=== PATIENT | female | born 1995 | race African-American/Black ===

== ENCOUNTER → 2022-06-12 08:03 | Outpatient (BNVA) | payer MEDICAID, SELFPAY | PROVIDERS: PCP Family Medicine; Visit Provider Physician Assistant Surgical ==

== ENCOUNTER → 2022-06-28 08:00 | Outpatient (BNVA) | payer MEDICAID, SELFPAY | PROVIDERS: PCP Family Medicine; Visit Provider Surgery ==

== ENCOUNTER 2022-07-09 06:57 | Outpatient (REF) | payer MEDICAID, SELFPAY ==
--- NOTE | ~2022-07-09 | XR_ITS ---
EXAMINATION: XR CHEST CLINICAL INFORMATION: Bariatric service evaluation. E66.01. COMPARISON: None available. TECHNIQUE: 2 views of the chest were obtained. FINDINGS: The lungs are clear. The vascularity is normal. There is no airspace consolidation or groundglass opacity or effusion. The heart is within normal size. The hilar and mediastinal contours are normal. There is mild levocurvature lower thoracic spine similar to prior exam. XR/XR chest 2V IMPRESSION: Lungs clear.
[2022-07-09 07:42] LABS: MANUAL DIFF FLAG NO
[2022-07-09 07:57] LABS: Basophils Percent Auto 0.3 % (0-2); Eosinophils Absolute Auto 0.1 X10*3/uL (0.0-0.4); Eosinophils Percent Auto 1.6 % (0-4); Hematocrit 40.4 % (37.0-47.0); Hemoglobin 12.7 g/dl (12.0-16.0); Imm Gran Abs Auto 0.01 X10*3/uL (0.00-0.03); Imm Gran Pct Auto 0.1 % (0.0-0.4); Lymphocytes Absolute Auto 1.7 X10*3/uL (1.2-4.9); Lymphocytes Percent Auto 24.7 % (20-40); Mean Corpuscular HGB Conc 31.4 g/dl (31.0-35.0); Mean Corpuscular Hemoglobin 25.5 pg (27.0-33.0); Mean Platelet Volume 9.9 fL (9.4-12.3); Monocytes Absolute Auto 0.5 X10*3/uL (0.1-1.2); Monocytes Percent Auto 7.2 % (2-11); Neutrophils Absolute Auto 4.7 x10*3/uL (2.0-8.3); Neutrophils Percent Auto 66.1 % (45-73); Platelet Count 253 X10*3/uL (160-400); Red Blood Count 4.99 X10*6/uL (4.20-5.50); Red Cell Distribution Width 13.7 % (11.0-16.0)
--- NOTE | 2022-07-09 08:07 | ECG_ITS ---
Test Reason : E66.01 Morbid Obesity Blood Pressure : / mmHG Vent. Rate : 060 BPM Atrial Rate : 060 BPM P-R Int : 142 ms QRS Dur : 082 ms QT Int : 400 ms P-R-T Axes : 043 030 025 degrees QTc Int : 400 ms Normal sinus rhythm Normal ECG When compared with ECG of 06-FEB-2019 08:31, No significant change was found Referred By: Kj Awad Electronically Signed By:WILFRIDO CHACON
[2022-07-09 08:23] LABS: Estimated Average Glucose 103 mg/dL; Hemoglobin A1c % 5.2 %
[2022-07-09 08:45] LABS: Alanine Aminotransferase 23 U/L (0-31); Albumin Level 4.2 g/dL (3.5-5.0); Alkaline Phosphatase 73 U/L (39-117); Anion Gap 10 (12-20); Aspartate Amino Transferase 24 U/L (5-31); Bilirubin Total 0.6 mg/dL (0.0-1.0); Blood Urea Nitrogen 9 mg/dL (9-16); C Reactive Protein 0.78 mg/dL (< or = 0.50); Calcium 9.1 mg/dL (8.4-10.2); Carbon Dioxide 25 mmol/L (22-29); Chloride 108 mmol/L (96-108); Cholesterol 112 mg/dL; Estimated Glomerular Filt Rate > 60; Glucose Random 94 mg/dL (60-115); HDL Cholesterol 33 mg/dL; Iron 54 mcg/dL (30-160); LDL Cholesterol Calculated 73 mg/dl; Percent Iron Saturation 20 % (15-50); Sodium 139 mmol/L (135-145); Total Iron Binding Capacity 272 mcg/dL (228-428); Total Protein 6.9 g/dL (6.5-8.0); Triglycerides 33 mg/dL; Unsaturated Iron Binding 218 ug/dL
[2022-07-09 09:13] LABS: Ferritin 65 ng/mL (10-122); Folate 11.3 ng/mL (> or = 4.0); Insulin 6 uU/mL (2-29); TSH reflex Free T4 0.82 uIU/mL (0.32-4.0); Vitamin B12 794 pg/mL (200-900); Vitamin D 25-OH Total 14.7 ng/mL (>30)
[2022-07-10 13:24] LABS: Calcium (PTHI) 9.4 mg/dL (8.6-10.2); PTHI 37 pg/mL (16-77)
[2022-07-12 11:26] LABS: H Pylori Breath Test Negative (Negative)
[2022-07-13 01:17] LABS: Zinc 82 mcg/dL (60-130)
[2022-07-13 11:54] LABS: Vitamin B1 10 nmol/L (8-30)
[2022-07-15 11:14] LABS: Vitamin A 22 mcg/dL (38-98)
== END 2022-07-09 06:58 | disposition home or self-care (01) ==
LOC: HO.LAB 06:57
PROVIDERS: PCP Family Medicine; Visit Provider Surgery
DX: E66.01 Morbid (severe) obesity due to excess calories (principal); J45.909 Unspecified asthma, uncomplicated; K21.9 Gastro-esophageal reflux disease without esophagitis; Z11.0 Encounter for screening for intestinal infectious diseases
CPT/HCPCS: 36415; 71046; 80053; 80061; 82306; 82607; 82728; 82746; 83013; 83036; 83525; 83540; 83970; 84425; 84443; 84590; 84630; 85025; 86140; 93005; 99211

== ENCOUNTER → 2022-07-22 08:06 | Outpatient (BNVA) | payer MEDICAID, SELFPAY | PROVIDERS: PCP Family Medicine; Visit Provider Surgery ==

== ENCOUNTER 2022-07-24 07:53 | Outpatient (REF) | payer MEDICAID, SELFPAY ==
--- NOTE | ~2022-07-24 | US_ITS ---
EXAMINATION: US COMPLETE ABDOMEN WITH LIVER ELASTOGRAPHY CLINICAL INFORMATION: Morbid to severe obesity. COMPARISON: None available. TECHNIQUE: Real-time imaging of the abdominal viscera. Noninvasive ultrasound liver fibrosis assessment is performed using Ariane ElastPQ point quantification shear wave elastography (2D-SWE) with a C5-2 MHz transducer. Multiple elastography samples are obtained. FINDINGS: PANCREAS: The visualized pancreatic head and body are normal in appearance. The remainder of the pancreas is obscured from visualization by the overlying bowel gas. ABDOMINAL AORTA: The proximal, middle, and distal aortic segments are normal in caliber. INFERIOR VENA CAVA: Visualized portions are normal. LIVER: Normal. The liver demonstrates normal size, contour and echogenicity. No focal lesion or intrahepatic biliary duct dilatation. The right lobe measures 14.3 cm in length. The left lobe measures 9.1 cm in length. Portal flow is hepatopedal. Shear wave liver elastography median stiffness is 1.39 m/s (reference: normal median stiffness is 1.3 m/s or less). IQR/median stiffness to assess sampling precision is 0.17 (reference: good quality data set is IQR/median stiffness of 0.15 or less). GALLBLADDER: Normal. The gallbladder is physiologically distended without evidence of stones, sludge, polyps, wall thickening or pericholecystic fluid. COMMON BILE DUCT: Normal in caliber measuring 0.6 cm in diameter. RIGHT KIDNEY: Normal. No hydronephrosis. No renal calculi or focal parenchymal lesions. The kidney measures 10.9 cm in maximum dimension. LEFT KIDNEY: There are prominent pyramids noted. No hydronephrosis. No renal calculi 0.17 or focal parenchymal lesions. The kidney measures 10.8 cm in maximum dimension. SPLEEN: Normal. The spleen measures 9.3 cm in maximum dimension. FREE FLUID: None. US/US abdomen comp w elastography IMPRESSION: 1. Slightly prominent pyramids left kidney. No echogenic renal calculi or hydronephrosis. 2. Rest of the abdominal ultrasound is unremarkable. 3. Liver elastography: Median liver stiffness measures 1.39 m/s corresponding to cACLD ruled out. REFERENCE: Society of Radiologists in Ultrasound Liver Stiffness Thresholds (2020): LIVER STIFFNESS THRESHOLDS: *Liver Stiffness equal or less than 1.3 m/s: High probability of being normal. *Liver Stiffness less than 1.7 m/s: In the absence of other known clinical signs, rules out compensated advanced chronic liver disease. *Liver Stiffness 1.7-2.1 m/s: Suggestive of compensated advanced chronic liver disease but need further test for confirmation. *Liver Stiffness over 2.1 m/s: Rules in compensated advanced chronic liver disease. *Liver Stiffness over 2.4 m/s: Suggestive of clinically significant portal hypertension. QUALITY OF DATA SET: *IQR/Median value equal or less than 0.15 implies a quality data set. *IQR/Median value over 0.15 implies a poor quality data set. SIGNIFICANT CHANGE FROM PRIOR EXAM: Significant change if liver stiffness measurement is 10% or greater from prior exam. OTHER CONSIDERATIONS: The stage of liver fibrosis may be overestimated in the setting of acute hepatitis, liver inflammation, elevated liver function tests, hepatic vascular congestion, obstructive cholestasis, non-fasting state, and infiltrative diseases such as amyloidosis and lymphoma. In some patients with NAFLD, the liver stiffness thresholds for compensated advanced chronic liver disease may be lower. In causes other than viral hepatitis and NAFLD, liver stiffness thresholds are not well established.
== END 2022-07-24 07:54 | disposition home or self-care (01) ==
LOC: HO.US 07:53
PROVIDERS: PCP Family Medicine; Visit Provider Surgery
DX: E66.01 Morbid (severe) obesity due to excess calories (principal); K21.9 Gastro-esophageal reflux disease without esophagitis; J45.909 Unspecified asthma, uncomplicated
CPT/HCPCS: 76705; 76981

== ENCOUNTER → 2022-07-29 08:55 | Outpatient (BNVA) | payer MEDICAID, SELFPAY | PROVIDERS: PCP Family Medicine; Visit Provider Dietitian, Registered | DX: E66.01 Morbid (severe) obesity due to excess calories (principal) | CPT/HCPCS: 97802 ==

== ENCOUNTER → 2022-08-05 08:30 | Outpatient (BNVA) | payer MEDICAID, SELFPAY | PROVIDERS: PCP Family Medicine; Visit Provider Counselor Mental Health ==

== ENCOUNTER → 2022-08-23 08:01 | Outpatient (BNVA) | payer MEDICAID, SELFPAY | PROVIDERS: PCP Family Medicine; Visit Provider Surgery ==

== ENCOUNTER 2022-08-27 08:28 | Outpatient (REF) | payer MEDICAID, SELFPAY ==
--- NOTE | ~2022-08-27 | FL_ITS ---
EXAMINATION: XR FLUOROSCOPY UPPER GI WITH AIR CLINICAL INFORMATION: Obesity COMPARISON: None available. TECHNIQUE: Upper GI was performed using thin and thick barium and effervescent granules FINDINGS: Normal esophageal motility. Gastroesophageal reflux. No hernia. Normal stomach and duodenum. No fold thickening, mass, ulcer or stricture. FLUOROSCOPY TIME: 0.4 minutes DOSE AREA PRODUCT: 5 cruz per centimeter squared. Total days 20 mgy. 22 saved fluoroscopic images FL/FL upper GI w air IMPRESSION: Gastroesophageal reflux.
== END 2022-08-27 08:29 | disposition home or self-care (01) ==
LOC: HO.XRAY 08:28
PROVIDERS: PCP Family Medicine; Visit Provider Surgery
DX: E66.01 Morbid (severe) obesity due to excess calories (principal); J45.909 Unspecified asthma, uncomplicated; K21.9 Gastro-esophageal reflux disease without esophagitis
CPT/HCPCS: 74246

== ENCOUNTER 2022-10-01 08:37 | Outpatient (AMB) | payer MEDICAID, SELFPAY ==
--- NOTE | 2022-10-01 08:37 | A.OFFVIS_ITS ---
Intake Intake Visit Reasons: VIDEO F/U [facility] Allergies No Known Allergies [No Known Allergies*] Allergy (Verified 07/09/22 08:30) NICKEL Allergy (Unknown, Uncoded 06/28/22 08:19) redness and itching HPI HPI Comments History of Present Illness Details 26 yo female returns to the [facility] clinic for follow up. She states she has been sick this past week and had not weighed herself or eating much She had N/V and had difficulty keeping solids down and she called her PCP who told her to just keep drinking fluids. Symptoms now resolved. Meal plan: ?2 Isopure protein shakes (1/2 scoop in water), 2 Zone Perfect protein bars and one meal (10 forks of protein and 10 forks of salad or vegetables) 64-96 oz water Exercise plan: when she isn't sick Treadmill incline 3-8 w speed 2.6, 4-5 days per week, 500 calories. 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 Encouraged to weigh tomorrow morning and communicate w Dr Lewis. She has resumed her meal plan and is restarting the gym today Once back on track w gym, suggest speed 3 incline 3-10. Same caloric goal. Has completed all pre-op testing Defer back to Dr Lewis for surgical scheduling when appropriate. Telehealth Telehealth Location of provider rendering services: practice address Location of patient: other Patient Identification confirmed using: Name, : Yes Telehealth method: video Patient verbally consented to treatment: Yes Patient verbally consented to billing insurance company: Yes Patient informed of any privacy concerns related to visit: Yes Minutes spent on Phone/Video with Pt.: 12 Coding Level of Care Code Tele Est Pt Level 3 (30099) Diagnoses Morbid obesity E66.01 Time Spent (min) 20
== END 2022-10-01 08:51 | disposition home or self-care (01) ==
LOC: HO.HBS 08:37
PROVIDERS: PCP Family Medicine; Visit Provider Physician Assistant Surgical
DX: E66.01 Morbid (severe) obesity due to excess calories (principal)
CPT/HCPCS: 99213

== ENCOUNTER 2022-10-28 07:46 | Outpatient (AMB) | payer MEDICAID, SELFPAY ==
--- NOTE | 2022-10-28 08:24 | MHC.OFFVISWM ---
Intake VS Expanded 10/28/22 08:29 Height 5 ft 5 in Weight 252 lb 2 oz BMI 42.0 Body Fat 149.3 Body Fat Percentage 59.2 Free Fat Mass 102.8 Water Mass 87 Intake Visit Reasons: TV Follow Up SWL Allergies No Known Allergies [No Known Allergies*] Allergy (Verified 07/09/22 08:30) NICKEL Allergy (Unknown, Uncoded 06/28/22 08:19) redness and itching HPI TV Follow Up SWL HPI Details Start time: 8.22am, End time: 8.36am ?I spent 10 minutes speaking with the patient on the phone plus an additional 5 minutes reviewing and updating records for a total of 15 minutes HPI Comments History of Present Illness Details Overall weight loss: 20.6lbs, or 7.55% TBWL Is doing 2 Isopure protein shakes (1/2 scoop each in water), 2 Zone Perfect protein bars and one meal (10 forks of meat and 10 forks of salad or vegetables) Exercise: Gym x2/week, doing treadmill for 500 calories per work-out [facility] Medical History Asthma DJD (degenerative joint disease) GERD (gastroesophageal reflux disease) Morbid obesity Surgical History History of tonsillectomy Social History Household Members: Significant Other Housing: House Alcohol intake: current Alcohol intake frequency: holidays/special occasions only Alcohol type: wine Current occupational status: employed 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 Plan for lap sleeve gastrectomy including upper GI endoscopy. All tests has been completed and reviewed and the patient is cleared for the surgery. ?If diaphragmatic or ventral hernias are present at time of surgery, these will be repaired laparoscopically as well. Risks and complications were discussed in detail including possible conversion to an open procedure, anastomotic leak, bleeding requiring transfusion, small bowel obstruction, , DVT and pulmonary embolism, cardiac, or pulmonary complications, as mass communications instructor complications such as anastomotic ulcer, insufficient weight loss and vitamin deficiencies. I emphasized the importance of close follow-up, adherence to instructions and good communication. So far she has proven to be an excellent communicator and very compliant with all our directions accomplishing a great weight loss. I believe that she is an excellent candidate and she is ready. 2. Continue same nutritional plan of 2 Isopure protein shakes (1/2 scoop each in water), 2 Zone Perfect protein bars and one meal (10 forks of meat and 10 forks of salad or vegetables) 3. Exercise: Try to increase Gym to 3 days/week, doing treadmill for 600 calories per work-out 4. Continue to send me weight measurements weekly on Tuesdays Telehealth Telehealth Location of provider rendering services: practice address Location of patient: address on file Patient Identification confirmed using: Name, : Yes Telehealth method: voice only Patient verbally consented to treatment: Yes Patient verbally consented to billing insurance company: Yes Patient informed of any privacy concerns related to visit: Yes Minutes spent on Phone/Video with Pt.: 15 Coding Level of Care Code Tele Est Pt Level 2 (66185) Diagnoses Morbid obesity E66.01 Time Spent (min) 15
[2022-10-28 08:29] VITALS: BMI 42.0
== END 2022-10-28 08:37 | disposition home or self-care (01) ==
LOC: HO.HBS 07:46
PROVIDERS: PCP Family Medicine; Visit Provider Surgery
DX: E66.01 Morbid (severe) obesity due to excess calories (principal); Z68.41 Body mass index [BMI] 40.0-44.9, adult
CPT/HCPCS: 99212

== ENCOUNTER → 2022-10-28 07:46 | Outpatient (BNVA) | payer MEDICAID, SELFPAY | PROVIDERS: PCP Family Medicine; Visit Provider Surgery ==

== ENCOUNTER 2022-10-31 16:34 | Outpatient (REF) | payer MEDICAID, SELFPAY ==
[2022-10-31 17:25] LABS: MANUAL DIFF FLAG NO
[2022-10-31 18:08] LABS: Basophils Percent Auto 0.3 % (0-2); Eosinophils Absolute Auto 0.1 X10*3/uL (0.0-0.4); Eosinophils Percent Auto 1.2 % (0-4); Hematocrit 37.1 % (37.0-47.0); Hemoglobin 11.5 g/dl (12.0-16.0); Imm Gran Abs Auto 0.02 X10*3/uL (0.00-0.03); Imm Gran Pct Auto 0.2 % (0.0-0.4); Lymphocytes Absolute Auto 2.7 X10*3/uL (1.2-4.9); Lymphocytes Percent Auto 27.9 % (20-40); Mean Corpuscular Hemoglobin 26.5 pg (27.0-33.0); Mean Corpuscular Volume 85.5 fL (80.0-98.0); Mean Platelet Volume 10.5 fL (9.4-12.3); Monocytes Absolute Auto 0.8 X10*3/uL (0.1-1.2); Monocytes Percent Auto 8.2 % (2-11); Neutrophils Percent Auto 62.2 % (45-73); Platelet Count 272 X10*3/uL (160-400); Red Blood Count 4.34 X10*6/uL (4.20-5.50); Red Cell Distribution Width 14.3 % (11.0-16.0); White Blood Count 9.7 X10*3/uL (4.8-10.8)
[2022-10-31 18:52] LABS: Alanine Aminotransferase 25 U/L (0-31); Alkaline Phosphatase 74 U/L (39-117); Anion Gap 12 (12-20); Aspartate Amino Transferase 23 U/L (5-31); Bilirubin Total 0.2 mg/dL (0.0-1.0); Blood Urea Nitrogen 13 mg/dL (9-16); Calcium 9.4 mg/dL (8.4-10.2); Carbon Dioxide 26 mmol/L (22-29); Chloride 107 mmol/L (96-108); Estimated Glomerular Filt Rate > 60; Glucose Random 85 mg/dL (60-115); Potassium 3.7 mmol/L (3.3-5.1); Sodium 141 mmol/L (135-145); Total Protein 7.1 g/dL (6.5-8.0)
[2022-10-31 18:56] LABS: HCG Quantitative < 2 mIU/mL
== END 2022-10-31 16:35 | disposition home or self-care (01) ==
LOC: HO.HHCL 16:34
PROVIDERS: Visit Provider Emergency Medicine
DX: R10.13 Epigastric pain (principal); N92.6 Irregular menstruation, unspecified
CPT/HCPCS: 36415; 80053; 84702; 85025

== ENCOUNTER 2022-11-08 08:34 | Outpatient (AMB) | payer MEDICAID, SELFPAY ==
--- NOTE | 2022-11-08 08:54 | A.OFFVIS_ITS ---
Intake VS Expanded 11/08/22 09:05 11/08/22 10:14 Height 5 ft 5 in 5 ft 5 in Weight 249 lb 2 oz 249 lb 2 oz BMI 41.5 41.5 Body Fat 147.5 147.5 Body Fat Percentage 59.2 59.2 Free Fat Mass 101.6 101.6 Water Mass 85.9 85.9 Intake Visit Reasons: TV Pre Op LSG 11/19/22 Allergies No Known Allergies [No Known Allergies*] Allergy (Verified 11/08/22 08:54) NICKEL Allergy (Unknown, Uncoded 11/08/22 08:54) redness and itching Medication List - Last Reconciled 11/08/22 by Kj Awad MD albuterol sulfate 2.5 mg inhalation Q6H aluminum hydrox-magnesium carb 254-237.5 mg/5 mL (Gaviscon Extra Strength) 10 mL PO TID cholecalciferol (vitamin D3) 125 mcg PO DAILY ondansetron 4 mg PO Q12H pantoprazole 40 mg PO DAILY polyethylene glycol 3350 (Miralax) 17 grams PO DAILY sucralfate 10 mL PO BID vitamin A palmitate 10,000 units orally one per day; HPI TV Pre Op LSG 11/19/22 HPI Details Start time: 8.00am, End time: 8.40am-9am ?I spent 15 minutes speaking with the patient on the phone plus an additional 5 minutes reviewing and updating records for a total of 20 minutes HPI Comments History of Present Illness Details Overall weight loss: 23.8lbs, or 8.72% TBWL Is doing 2 Isopure protein shakes (1/2 scoop each in water), 2 Zone Perfect protein bars and one meal (10 forks of meat and 10 forks of salad or vegetables) Exercise: is doing treadmill for 500 calories x7/week (speed 3.0 and incline 2- 8) PFSH Medical History Asthma DJD (degenerative joint disease) GERD (gastroesophageal reflux disease) Morbid obesity Surgical History History of tonsillectomy Social History Household Members: Significant Other Housing: House Alcohol intake: current Alcohol intake frequency: holidays/special occasions only Alcohol type: wine Current occupational status: employed 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 Plan for lap sleeve gastrectomy including upper GI endoscopy. All tests has been completed and reviewed and the patient is cleared for the surgery. ?If diaphragmatic or ventral hernias are present at time of surgery, these will be repaired laparoscopically as well. Risks and complications were discussed in detail including possible conversion to an open procedure, anastomotic leak, bleeding requiring transfusion, small bowel obstruction, , DVT and pulmonary embolism, cardiac, or pulmonary complications, as tank terminal gauger complications such as anastomotic ulcer, insufficient weight loss and vitamin deficiencies. I emphasized the importance of close follow-up, adherence to instructions and good communication. So far she has proven to be an excellent communicator and very compliant with all our directions accomplishing a great weight loss. I believe that she is an excellent candidate and she is ready. 2. Preop prescriptions were provided and explained the purpose of each one. Need to be purchased preop. Start Pantoprazole now as you get it from the pharmacy, 1 pill per day. Sucralfate and Zofran are for after surgery as needed. 3. Bowel prep: please do 7 packets ?of Miralax mixing each one with a an 8oz glass of water, crystal light, gatorade zero, or propel ?on 11/17/22 and the same amount on 11/18/22. Continue the protein shakes during? the bowel prep. 4. Needs to purchase 1oz medicine cups . 5. Needs to purchase Children's liquid Tylenol for postop pain control. 6. She needs to stop the Gavidscon as of tomorrow. Avoid aspirin, motrin, Advil, Aleve, Ibuprofen, Naproxyn. Tylenol is OK. 7. She needs to purchase the Celebrate 4:1 protein shakes from the hospital's gift shop. 8. Will do basic preop blood work-up any day between Friday11/11/22 and Friday11/15/22 fasting for 12 hours and is scheduled to see the Anesthesiologist prior to the day of surgery. 9. Importance of adherence to postop folllow-up and recommendations was underscored and she understands that. 10. Stop food and bars as of tomorrow 11/09/22 and continue with 2 Isopure protein shakes (HALF scoop EACH in 8oz water) at 2am-4am and 5am-7am, and three Isopure protein shakes with ONE scoop EACH in 8oz of water 8am-10am, 11am-1pm and 2pm-4pm. 11. No soups, broths or V8 12. The patient's?medical?history has been reviewed and they are considered low risk for post op DVT and therefore DVT prophylaxis is not considered necessary. Travel after surgery was reviewed. The patient has not disclosed any travel plans during the first 30 days after surgery and they have been advised that within the first 30 days after surgery any bus, plane, train or car travel over 2 hours in duration is contraindicated due to the possibility of developing blood clots from immobility. Any travel, needs to include periods of ambulation of 10 minutes in duration every 2 hours.? Patient was instructed to discuss any plans for travel during this period with their bariatric surgeon.? 13. Please take at the day of surgery the following medications: 14. Stop any control pills and don't use them for one month after surgery 15. Absolutely no smoking or vaping, or marijuana until the surgery and for at least the first 4 weeks. Only nicotine patches are allowed. 16. Send me weight measurements next Friday and then on Friday11/19/22 the day of surgery before you go to the hospital. 17. Avoid any steroids by mouth for any reason. Let me know if someone prescribes them to you Orders: Orders Type and Screen Today E66.01 - Morbid (severe) obesity due to excess calories Comprehensive Met. Panel Today E66.01 - Morbid (severe) obesity due to excess calories C Reactive Protein Today E66.01 - Morbid (severe) obesity due to excess calories Hemoglobin A1c Today E66.01 - Morbid (severe) obesity due to excess calories Insulin Today E66.01 - Morbid (severe) obesity due to excess calories Lipid Panel Today E66.01 - Morbid (severe) obesity due to excess calories TSH reflex Free T4 Today E66.01 - Morbid (severe) obesity due to excess calories Prothrombin Time INR Today E66.01 - Morbid (severe) obesity due to excess calor ies Partial Thromboplastin Time Today E66.01 - Morbid (severe) obesity due to excess calories Complete Blood Count Auto Diff Today E66.01 - Morbid (severe) obesity due to excess calories Medications: New pantoprazole 40 mg PO DAILY 30 tabs 2RF K21.9 - Gastro-esophageal reflux disease without esophagitis sucralfate 10 mL PO BID 400 mL 2RF K21.9 - Gastro-esophageal reflux disease without esophagitis ondansetron Only take one every 12 hours as needed if you have nausea 4 mg PO Q12H 20 tabs 0RF nausea and vomiting R11.0 - Nausea polyethylene glycol 3350 (Miralax) Mix each packet with 8oz of water, Crystal light, or Gatorade zero, or Propel and do 7 packets on 11/17/22 and another 7 packets on 11/18/22 17 grams PO DAILY 14 ea 0RF Z01.818 - Encounter for other preprocedural examination Telehealth Telehealth Location of provider rendering services: practice address Location of patient: address on file Patient Identification confirmed using: Name, : Yes Telehealth method: voice only Patient verbally consented to treatment: Yes Patient verbally consented to billing insurance company: Yes Patient informed of any privacy concerns related to visit: Yes Minutes spent on Phone/Video with Pt.: 20 Coding Level of Care Code Tele Est Pt Level 3 (07686) Diagnoses Morbid obesity E66.01 Time Spent (min) 20
[2022-11-08 09:05] VITALS: BMI 41.5
[2022-11-08 10:14] VITALS: BMI 41.5
== END 2022-11-08 10:23 | disposition home or self-care (01) ==
LOC: HO.HBS 08:34
PROVIDERS: PCP Family Medicine; Visit Provider Surgery
DX: E66.01 Morbid (severe) obesity due to excess calories (principal); Z68.41 Body mass index [BMI] 40.0-44.9, adult
CPT/HCPCS: 99024

== ENCOUNTER → 2022-11-08 08:34 | Outpatient (BNVA) | payer MEDICAID, SELFPAY | PROVIDERS: PCP Family Medicine; Visit Provider Surgery ==

== ENCOUNTER 2022-11-11 08:03 | Outpatient (REF) | payer MEDICAID, SELFPAY ==
[2022-11-11 08:42] LABS: MANUAL DIFF FLAG NO
[2022-11-11 08:55] LABS: Basophils Percent Auto 0.4 % (0-2); Eosinophils Absolute Auto 0.1 X10*3/uL (0.0-0.4); Eosinophils Percent Auto 1.2 % (0-4); Hematocrit 37.4 % (37.0-47.0); Hemoglobin 11.6 g/dl (12.0-16.0); Imm Gran Abs Auto 0.03 X10*3/uL (0.00-0.03); Imm Gran Pct Auto 0.4 % (0.0-0.4); Lymphocytes Percent Auto 25.9 % (20-40); Mean Corpuscular Hemoglobin 26.4 pg (27.0-33.0); Mean Corpuscular Volume 85.2 fL (80.0-98.0); Mean Platelet Volume 10.3 fL (9.4-12.3); Monocytes Absolute Auto 0.5 X10*3/uL (0.1-1.2); Monocytes Percent Auto 7.1 % (2-11); Neutrophils Absolute Auto 4.9 x10*3/uL (2.0-8.3); Platelet Count 235 X10*3/uL (160-400); Red Blood Count 4.39 X10*6/uL (4.20-5.50); Red Cell Distribution Width 14.1 % (11.0-16.0); White Blood Count 7.6 X10*3/uL (4.8-10.8)
[2022-11-11 09:01] LABS: Prothrombin Time 11.7 SEC (11.1-13.3)
[2022-11-11 09:03] LABS: Estimated Average Glucose 97 mg/dL
[2022-11-11 09:04] LABS: Partial Thromboplastin Time 27.5 SEC (26.0-36.4)
== END 2022-11-11 08:04 | disposition home or self-care (01) ==
LOC: HO.LAB 08:03
PROVIDERS: PCP Family Medicine; Visit Provider Surgery
DX: E66.01 Morbid (severe) obesity due to excess calories (principal)
CPT/HCPCS: 36415; 80053; 80061; 83036; 83525; 84443; 85025; 85610; 85730; 86140

== ENCOUNTER 2022-11-19 06:10 | Inpatient (IN) | payer MEDICAID, SELFPAY ==
[2022-11-12 12:17] VITALS: BMI 41.6
--- NOTE | 2022-11-15 22:34 | P.HPSUR_ITS ---
Pre-Procedural Eval Section A Date of Service: 11/15/22 The patient is an INPATIENT: Yes The History & Physical has been completed within 30 days and I have reviewed it.: Yes Section B Chief Complaint: morbid obesity Relevant Family History (Specify if Yes): No Relevant Social History: None Present Medications: None Medical History: No relevant PMH History of Previous Operations: No relevant previous surgery Allergies: Allergies Allergy/AdvReac Type Severity Reaction Status Date / Time No Known Allergies Allergy Verified 11/08/22 08:54 [No Known Allergies*] NICKEL Allergy Unknown redness Uncoded 11/08/22 08:54 and itching Review of Systems Sugical H&P ROS: Negative: Constitution, Cardiovascular, Respiratory, Neurological, Psychiatric, Hem-Onc, Allergic/Immunologic, Gastrointestinal, Gen itourinary, Musculoskeletal, Integumentary, Endocrine and Eyes/Ears/Nose/Throat Exam Surgical H&P Exam: Normal: HEENT, Normal: Heart, Normal: Lungs, Normal: Extremities, Normal: Abdomen, Normal: Skin and Normal: Neurological Plan Diagnosis/Plan: Unchanged I have reviewed the history and physical and performed a pertinent physical examination on my patient. No changes have occurred unless specified. Time Spent With Patient Time: Total time managing care of this patient today ____ minutes.
--- NOTE | 2022-11-18 09:36 | P.CONAN_ITS ---
Documented by User: Geovanna Menon NP 11/18/22 09:37 HPI - Anesthesia Eval Consult details Narrative: 26yo F for Gastrectomy Sleeve,EGD,poss diaphragmatic hernia,poss ventral hernia,poss open, PMFSH Active Problems Active Problems: All Active Problems (Updated 11/12/22 @ 12:17 by Haley Johnson RN) Depression (Acute) Vitamin D deficiency (Acute) Major depressive disorder, recurrent, in remission, unspecified (Acute) DJD (degenerative joint disease) (Acute) GERD (gastroesophageal reflux disease) (Acute) Asthma (Acute) Morbid obesity (Acute) Past Medical History Medical History Anxiety Asthma DJD (degenerative joint disease) GERD (gastroesophageal reflux disease) Morbid obesity Surgical History Surgical History History of tonsillectomy Social History Social History Household Members: Significant Other and Family Housing: House Are you a primary child day care provider to a significant other at home: No Do you presently have visiting nurse or other home services: No Alcohol intake: current Alcohol intake frequency: holidays/special occasions only Alcohol type: wine Patient Tobacco Use Status: Never used Tobacco Use of substances other than those prescribed or required for medical reasons: No Have you been hit, kicked, punched, or otherwise hurt by someone within the past year? 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 [employer] Allergies Allergy/AdvReac Type Severity Reaction Status Date / Time No Known Allergies Allergy Verified 11/08/22 08:54 [No Known Allergies*] NICKEL Allergy Unknown redness Uncoded 11/08/22 08:54 and itching Home Medications Medication Instructions Recorded Confirmed Last Taken Type albuterol sulfate 5 mg/mL(0.5 %) 2.5 mg inhalation Q6H PRN 06/12/22 11/12/22 Unknown History solution for nebulization Shortness Of Breath Or Wheezing albuterol sulfate 90 mcg/actuation 2 puff inhalation Q4-6H PRN 11/12/22 11/12/22 Unknown History aerosol inhaler (ProAir HFA) Shortness Of Breath Or Wheezing Exam Exam Date and Time: November 18, 2022 0936 Height,Weight and Vital Signs: Height 5 ft 5 in Weight 113.398 kg Pertinent Lab Results Pertinent Lab Results: Laboratory Tests 11/11/22 08:26 Blood Type O Positive Antibody Screen NEGATIVE Laboratory Tests 10/31/22 11/11/22 16:39 08:32 WBC 7.6 Hgb 11.6 L Hct 37.4 Plt Count 235 Sodium 141 Potassium 3.7 Chloride 107 Carbon Dioxide 26 BUN 13 Creatinine 0.75 Narrative Narrative: EKG 06/2022 Vent. Rate : 060 BPM ? ? Atrial Rate : 060 BPM ?? P-R Int : 142 ms? QRS Dur : 082 ms ? ? QT Int : 400 ms ? ? ? P-R-T Axes : 043 030 025 degrees ?? QTc Int : 400 ms ? Normal sinus rhythm Normal ECG When compared with ECG of 06-FEB-2019 08:31, No significant change was found Assessment and Plan Assessment Anesthesia Assessment: Chart Reviewed Documented by User: Zuri Diaz MD 11/19/22 08:25 [facility] Past Medical History Medical History Anxiety Asthma DJD (degenerative joint disease) GERD (gastroesophageal reflux disease) Morbid obesity Surgical History Surgical History History of tonsillectomy History of Problems with Anesthesia: No Social History Social History Household Members: Significant Other and Family Housing: House Are you a primary child day care provider to a significant other at home: No Do you presently have visiting nurse or other home services: No Alcohol intake: current Alcohol intake frequency: holidays/special occasions only Alcohol type: wine Patient Tobacco Use Status: Never used Tobacco Use of substances other than those prescribed or required for medical reasons: No Have you been hit, kicked, punched, or otherwise hurt by someone within the past year? 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 [employer] Allergies Allergy/AdvReac Type Severity Reaction Status Date / Time No Known Allergies Allergy Verified 11/08/22 08:54 [No Known Allergies*] NICKEL Allergy Unknown redness Uncoded 11/08/22 08:54 and itching Home Medications Medication Instructions Recorded Confirmed Last Taken Type albuterol sulfate 5 mg/mL(0.5 %) 2.5 mg inhalation Q6H PRN 06/12/22 11/12/22 Unknown History solution for nebulization Shortness Of Breath Or Wheezing albuterol sulfate 90 mcg/actuation 2 puff inhalation Q4-6H PRN 11/12/22 11/12/22 Unknown History aerosol inhaler (ProAir HFA) Shortness Of Breath Or Wheezing Exam Airway Mallampati Class: III TM Dist: >3cm Neck ROM: Full Loose/Missing/Broken Teeth: No Heart: RRR Lungs: CTA Other: mouth piercings, nose piercing Assessment and Plan Assessment Anesthesia Assessment: Anesthesia Plan Discussed Final Anesthetic Review History of Problems with Anesthesia: No ASA Class: III Final Preanesthetic Review: Meds/Allgs Chart Reviewed, Consent Obtained/Reviewed and Anes Risks/Benef Reviewed Patient Risk: Intermediate Procedure Risk: Intermediate Anesthetic Plan Anesthetic Plan: GA Disposition: Standard PACU
[2022-11-19] VITALS (21 sets, daily range): BP systolic 100–151; BP diastolic 60–90; PULSE 71–91; RESP 13–24; TEMP 36.3–37.2; O2SAT 98–100
[2022-11-19 06:25] LABS: UPreg QC Valid YES; Urine Pregnancy NEGATIVE (NEGATIVE)
--- NOTE | 2022-11-19 06:38 | PHA.MEDREC ---
Pharmacy Consult ? Medication Reconciliation Pharmacy has completed the medication reconciliation.
[2022-11-19] MEDS: Aprepitant 32 MG/4.4 ML VIAL IVPUSH (07:38)
[2022-11-19] MEDS: Lactated Ringers 1,000 ML 999 ML IV (07:38)
--- NOTE | 2022-11-19 07:39 | PC.NURSE ---
patient difficult IV stick, 2 attempts made by this RN, 2 attempts made by Marcia Vigil, RN, [address] Caldwell, Anesthesiologist. #20 left AC IV access obtained by Dr. Peraza, Anesthesiologist using ultrasound. pt tolerated well
--- NOTE | 2022-11-19 07:42 | PM.OP ---
Brief Operative Note Date of Service: 11/19/22 Pre-op diagnosis: Morbid obesity and comorbidities (see below) Post-op diagnosis: same Procedure: INITIAL PATIENT BMI ON PRESENTATION AT OUR OFFICE: 45.4 kg/m2 LAST BMI BEFORE SURGERY: 41.5 kg/m2 COMORBIDITIES: GERD, asthma, depression, knee pain ?The patient presented to the Weight Management Program with significant obesity that was negatively impacting the patient's comorbidities as listed above.? The program is a phased program with a special focus on preoperative medical weight management to promote substantial weight loss and prepare the patients for the second phase of the program: bariatric surgery. The patient participated in an intensive weekly lifestyle ?intervention and exercise program during which the patient ?has lost between the initial office visit and the last preoperative visit 23.6lbs, or 13.14% of initial actual body weight. It was deemed appropriate for the patient to now have bariatric surgery. In light of the current Covid-19 pandemic and the well documented strong association of obesity and increased risk of worse outcomes if infected with Covid-19 (REFERENCES:https://pubmed.ncbi.nlm.nih.gov/50710624/,?https://pubmed.ncbi.nlm.nih.gov/31696426/), any delay in undergoing bariatric surgery may lead to the patient's worsening health condition and increased?risk of more severe Covid-19 disease if infected. In addition a recent?study from [facility] published in [employer] on 03/19/2021 ([email or web address]) found that, among patients with obesity, substantial weight loss achieved with surgery was associated with improved outcomes of COVID-19 infection. The findings suggest that obesity can be a modifiable risk factor for the severity of COVID-19 infection. In addition, the patient met the BMI-criteria for bariatric surgery based on the BMI on initial presentation. The patient should not be penalized for achieving such weight loss because ?it is not sustainable long-term without surgical intervention and it was achieved in preparation for bariatric surgery ?under my direction and based on my published research ([email or web address]).[email or web address] and?https://www.soard.org/article/[email or web address])72181-X/pdf) ?that a 10% preoperative weight loss improves long-term weight loss after surgery and reduces perioperative complications.? Insurance carriers such as [facility] have endorsed my recommendations ?and have included in their policies criteria to include a 10% preoperative weight loss requirement. PROCEDURE: Esophago-gastroscopy, laparoscopic sleeve gastrectomy and laparoscopic gastropexy INDICATIONS: This is a 26 year-old female who was electively scheduled for laparoscopic, possibly open sleeve gastrectomy. The risks and complications of the procedure were discussed with the patient in advance, particularly the possibility of ; pulmonary embolism; staple line leak; bleeding; GERD; cardiac, pulmonary, or renal complications; as well as long-term problems such as insufficient weight loss, vitamin deficiency, strictures, or ulcers. The patient understood all the risks, and was in agreement to proceed with surgery. DESCRIPTION OF PROCEDURE: After informed consent was obtained from the patient, the patient was given preoperative antibiotics, and was transferred to the operating room. After successful induction of general anesthesia, pneumatic compression devices were placed on both lower extremities. An upper endoscopy was performed next. The oropharynx and esophagus appeared to be within normal limits. There was no diaphragmatic hernia present consistent with the findings of the preoperative upper GI. The stomach was entered. Then after all fluid and air were suctioned and the stomach was fully decompressed, the scope was withdrawn and secured in the mid esophagus. The patient was then prepped and draped in the usual sterile manner, and abdominal access was established at the right upper quadrant with the Norm technique. A 12 mm blunt port was inserted, and the abdomen was insufflated with CO2 to a pressure of 15 mmHg. Under direct visualization, additional ports were placed, specifically two 5 mm Versi-step ports to the left upper quadrant, and a 5 mm Versi-Step port to the right upper quadrant. 1% lidocaine plain was used to infiltrate all port sites as well as all fascia defects. Using the EndoClose suture passer device, I placed a #1 Polysorb tie across the falciform ligament in order to retract it up against the abdominal wall and prevent injury of the ligament with our instruments during the procedure. Following that, the patient was placed in a steep reverse Trendelenburg position. An additional 5 mm port was placed to the right flank for the Mediflex retractor that was used to retract the left lobe of the liver. The gastro-esophageal fat pad was opened with the ultrasonic device (Thunderbeat, Olympus) and the anterior esophagus and hiatus were exposed. The angle of His was opened with the ultrasonic device the fundus of the stomach from any diaphragmatic and splenic attachments. I then opened the gastrocolic ligament between the transverse colon and the greater curvature of the stomach with the ultrasonic device to enter the lesser sac and facilitate the ligation of the short gastric vessels. I started at a mid-point along the greater curvature and using the Thunderbeat, all short gastric vessels were divided all the way to the angle of His until the left latisha was completely dissected at its entirety. I then divided the gastro-colic ligament distally to a distance of about 3-4 cm proximal to the pylorus. The stomach was then divided transversely with two Endo VALENCIA-45 purple and three VALENCIA-60 articulating purple loads using the AEON stapler and loads. Every effort was made that the gastric sleeve had a tubular shape and an even caliber throughout. Once the sleeve resection was completed, the staple line of the gastric sleeve was reinforced with Hemoclips. The resected stomach was retrieved without difficulty from the Norm port. A gastropexy was then performed in order to prevent postoperative GERD and partial gastric volvulus. Several interrupted 2.0 Surgidac sutures were placed between the sleeve's staple line and the previously divided greater omentum and gastro-colic ligament using the Endo-Stitch device. ?An upper endoscopy was performed. There was no narrowing at the GE junction. The scope was easily advanced all the way to the pylorus which was clearly visualized. There was no narrowing anywhere and the sleeve's caliber was even throughout. The sleeve's staple line was inspected and there was no evidence of ischemia, bleeding or dehiscence. At that point the gastroscope was withdrawn from the patient?s mouth while we were decompressing the bowel and the stomach from any remaining air. I looked into the lesser sac to see how the sleeve was situating and it was situating well. There was no bleeding from the staple line, spleen, or short gastric vessels. The Mediflex retractor was removed, and the undersurface of the liver was inspected and there was no bleeding. The patient was placed in supine position. I closed the fascial defect of the 12 mm port site with a figure of eight #1 Polysorb suture. Then 30cc Ropivacaine plain with 10 mg of Dexamethasone were used to infiltrate the fascial closure as well as all skin incisions. A total of 7ml Zynrelef was applied in the Norm wound. At this point, the abdomen was deflated, all ports were removed under direct vision, and no bleeding was noted from any of the port sites. The skin incisions were irrigated with saline and were closed with 4-0 absorbable monofilament sutures. Steri-Strips and OpSites were used to cover all incisions. The patient was extubated and was transferred in stable condition to the recovery room for further care. I was present and performed all hernandez parts of the procedure. Ms. Bernardson was the talent acquisition assistant. There were no residents to assist with this case. Lior Awad MD, PhD, FACS Surgeon: Kj Awad MD Anesthesia: GETA, local and other (TAP block & 7ml Zynrelef) Was an Cdl Service Technician used for this Procedure?: Yes Cdl Service Technician: Norma Dhillon Estimated blood loss (mL): 10 IV fluids (mL): 1,800 Urine output (mL): 0 (No [place] to record output) Pathology: other (Stomach) Condition: stable Disposition: PACU
--- NOTE | 2022-11-19 07:46 | PM.PNGS ---
Subjective Subjective Date of Service: 11/20/22 Interval history: Feels well. Mild incisional pain. She is tolerating phase 1 bariatric diet Physical Exam Vital Signs: Vital Signs: Last Vital Signs Temp 97.9 F 11/19/22 06:26 Pulse 79 11/19/22 06:26 Resp 16 11/19/22 06:26 BP 100/61 11/19/22 06:26 Pulse Ox 98 11/19/22 06:26 O2 Del Method Room Air 11/19/22 06:26 BMI result Body Mass Index 41.6 GI: Inspection: Yes normal to inspection, Yes incision (clean, dry and intact) and Yes obesity Palpation (GI): Soft to palpation Extrem: Right lower extremity: normal to inspection (no calf tenderness) Left lower extremity: normal to inspection (no calf tenderness) Objective Data Active Medications Albuterol Sulfate (Albuterol Sulfate (0.083%) 2.5 Mg/3 Ml Vial.Neb) 2.5 mg INHALE ONCE PRN PRN Reason: Shortness of Breath/Wheezing Lactated Ringer's (Lr) 1,000 mls @ 100 mls/hr IVCONT .Q10H IZABELLA Lactated Ringer's (Lr) 1,000 mls @ 999 mls/hr IV .Q1H1M IZABELLA Stop: 11/19/22 08:15 Last Admin: 11/19/22 07:38 Dose: 999 mls/hr Documented By: KATLIN Labs 11/20/22 07:15 11/20/22 07:15 Labs: Laboratory Results - last 24 hr 11/19/22 06:11 Urine Test NEGATIVE Procedures Date of Service Date of Service: 11/20/22 Progress Note: A&P Assessment and plan (1) Morbid obesity: Status: Acute Assessment and Plan: s/p laparoscopic sleeve gastrectomy and gastropexy Doing well Will check am labs and if OK the patient will be discharged home (2) Asthma: Status: Acute (3) GERD (gastroesophageal reflux disease): Status: Acute (4) DJD (degenerative joint disease): Status: Acute (5) Depression: Status: Acute (6) S/P laparoscopic sleeve gastrectomy: Status: Acute Time Spent With Patient Time: Total time managing care of this patient today ____ minutes. Quality Stroke Does the patient have a stroke diagnosis?: No VTE Prior VTE?: No VTE Risk Level:: Surgical - moderate VTE Device Contraindication: Treatment Not Indicated VTE Drug Contraindication: N/A - Med Ordered
--- NOTE | 2022-11-19 09:53 | PM.DS ---
DS: Providers Provider Date of Service: 11/20/22 Date of admission: 11/19/22 06:10 Primary care physician: Agata Bryant MD DS: Diagnosis Discharge Diagnosis (1) Morbid obesity: Status: Acute (2) Asthma: Status: Acute (3) GERD (gastroesophageal reflux disease): Status: Acute (4) DJD (degenerative joint disease): Status: Acute (5) Depression: Status: Acute (6) S/P laparoscopic sleeve gastrectomy: Status: Acute DS: Summary Hospital Course Hospital Course: ADMITTING DIAGNOSIS: morbid obesity, GERD, asthma DISCHARGE DIAGNOSIS: same, s/p laparoscopic sleeve gastrectomy PAST SURGICAL HISTORY: tonsillectomy PROCEDURE: upper endoscopy, laparoscopic sleeve gastrectomy DISCHARGE SUMMARY: History of Present Illness: The patient is a 26year-old woman with a BMI of 45.3 kg/m2 and associated co-morbidities as described above. The patient had extensive work-up, lost 23.8 lbs preoperatively and was electively scheduled for laparoscopic, possible open sleeve gastrectomy and gastropexy. Risks and complications of the surgery were discussed with the patient in advance, particularly the possibility of , pulmonary embolism, anastomotic leak, bleeding, bowel injury, GERD, cardiac, renal or pulmonary complications. The patient understood all the risks and was in agreement with the surgical plan. Hospital Course: The patient underwent an uneventful laparoscopic sleeve gastrectomy with gastropexy on the day of admission. Postoperatively, the patient was transferred to the surgical floor. The patient received IV Acetaminophen and IV dilaudid for pain control. Patient was started on bariatric phase 1 diet POD #0. On postoperative day one, the patient was feeling well without nausea, vomiting, fevers, or tachycardia. The patient had some mild incisional pain and the abdomen was soft. On the morning of postoperative day one, the patient was continued on 1 ounce of water or ice every half hour. During the day, the patient did fairly well, having some incisional pain, but able to ambulate adequately and to tolerate liquids well. Since the patient is doing well, we decided that the patient was ready to be discharged. The patient was given instructions to follow-up with me next week and to call my office for any fever over 101, persistent abdominal pain, nausea, vomiting, GERD, symptoms of DVT such as calf tenderness, or leg swelling, or pulmonary embolism such as chest pain or shortness of breath. The patient was also instructed to drink 40-60 ounces of liquids per day using the 1-ounce cups. The patient had been given prescriptions for Tylenol for pain, Zofran prn for nausea, and pantoprazole and carafate previously. The patient was encouraged to ambulate and use the incentive spirometer. The patient was allowed to shower, but no baths, and encouraged to stay active at home. All of these instructions were given to the patient personally. All questions were answered and the patient understood all instructions, the instructions were also given to the patient in print. Time Spent with Patient Time attestation: Total time managing care of this patient today ____ minutes. Discharge coordination time: Less than 30 minutes Quality: Safe Use of Opioids Does Pt have an Active Cancer Diagnosis on the Problem List?: No Quality: Stroke Does the patient have a stroke diagnosis?: No Physical Exam Vital Signs: Vital Signs: Last Vital Signs Temp 97.9 F 11/19/22 06:26 Pulse 79 11/19/22 06:26 Resp 16 11/19/22 06:26 BP 100/61 11/19/22 06:26 Pulse Ox 98 11/19/22 06:26 O2 Del Method Room Air 11/19/22 06:26 BMI result Body Mass Index 41.6 DS: Data Data Completed and Pending Pending studies at discharge: Pending at discharge 11/19/22 09:04 Surgical [PTH] Routine Labs on day of discharge: Laboratory Results - last 24 hr 11/19/22 06:11 Urine Test NEGATIVE Discharge Plan Discharge Anticipated Discharge Date/Time: 11/20/22 10:00 Patient Disposition: Home, Self-Care Discharge Diagnosis: s/p sleeve gastrectomy Referrals: Agata Bryant MD [Primary Care Provider] - 1 Week Discharge Medications: Continued albuterol sulfate [ProAir HFA] 90 mcg/actuation Hfa Aerosol Inhaler 2 puff INHALATION Q4-6H PRN (Reason: Shortness Of Breath Or Wheezing) Patient Comments: has not needed recently albuterol sulfate 5 mg/mL solution for nebulization 2.5 mg inhalation Q6H PRN (Reason: Shortness Of Breath Or Wheezing) Patient Comments: Has not needed recently pantoprazole 40 mg tablet,delayed release (DR/EC) 40 mg PO DAILY Qty: 30 2RF sucralfate 100 mg/mL suspension 10 ml PO BID Qty: 400 2RF ondansetron 4 mg tablet,disintegrating 4 mg PO Q12H Qty: 20 0RF Rx Instructions: Only take one every 12 hours as needed if you have nausea Discontinued cholecalciferol (vitamin D3) 125 mcg (5,000 unit) capsule 125 mcg PO DAILY Qty: 30 2RF vitamin A palmitate 3,000 mcg (10,000 unit) capsule 10,000 unit PO .COMPLEX Qty: 30 2RF Rx Instructions: 10,000 units orally one per day; Discharge Orders: Discharge Order (Routine); Ordered 11/20/22 Ordered By: Kj Awad Activity on Discharge: No heavy lifting Stand Alone Forms: Patient Portal Discharge page Care Plan Goals: weight loss Health Concerns: morbid obesity Plan of Treatment: No tub baths, sex or returning to work until discussed at first post op appointment. No exercise, alcohol, tobacco or illegal drug use. Continue to use incentive spirometer hourly while awake. Walk in home for 5- 10 minutes every 2 hours during the first week. Continue phase 1 diet today and start phase 2 diet tomorrow morning. Follow all instructions in the bariatric handbook and call with any questions. 1. Please call your doctor or come back to the emergency room should any new symptoms arise. 2. You will receive a courtesy call from [facility] 24-48 hours after discharge. 3. Activity: abstain from alcohol, practice limited stair climbing, no bending, no driving, no exercise, no illicit substances, no lifting, no sex, no tub bath, no work. 4. Diet: continue as discussed with bariatric team.. 5. Dressing Change/Wound Care: Do not change or remove surgical dressings unless they are wet or soiled. 6. Call your doctor if: - Your temperature exceeds 101.5 F - You experience excessive pain or swelling - You have an unexpected reaction to medication - You have excessive bleeding - You experience continued vomiting/nausea - Your incision begins to separate - Your incision shows signs of infection such as increased redness, swelling, excessive pain, heat, or drainage (light blood or clear fluid is normal) 7. General instructions: No lifting greater than 5 lbs for the next 4 weeks[address] within 24 hours of taking narcotic pain medications. If you do not move your bowels in the next 2 days, please take milk of magnesia over the counter. Please follow the post op diet and do not advance your diet until you are seen in the office in about 2 weeks. Please walk around your home every hour or two to prevent blood clots from forming in your legs. You do not need to wake from sleeping to walk. Please sleep in a bed or couch to prevent kinking at the hips and knees. Please take your incentive spirometer (your lung director airport operations) home with you and use it for the next few days to prevent pneumonias. You may shower, no hot tubs, baths or swimming pools. Please call the office with any questions or concerns such as increasing abdominal pain, fever, chills, shortness of breath, chest pain, leg pain or swelling, or redness or drainage from your incisions. Do not hesitate to contact the office with any questions at . The patient's medical history has been reviewed and they are considered low risk for post op DVT and therefore DVT prophylaxis is not considered necessary. Travel after surgery was reviewed. The patient has not disclosed any travel plans during the first 30 days after surgery and they have been advised that within the first 30 days after surgery any bus, plane, train or car travel over 2 hours in duration is contraindicated due to the possibility of developing blood clots from immobility. Any travel, needs to include periods of ambulation of 10 minutes in duration every 2 hours. The patient was instructed to discuss any plans for travel during this period with their bariatric surgeon. Assessment: stable, post op sleeve gastrectomy
[2022-11-19 10:18] LABS: Hematocrit 40.8 % (37.0-47.0); Hemoglobin 12.7 g/dl (12.0-16.0)
[2022-11-19] MEDS: HYDROmorphone HCl 0.5 MG/0.5 ML SYRINGE 0.25 MG IVPUSH ×3 (10:29→19:21)
[2022-11-19 10:31] LABS: Anion Gap 14 (12-20); Blood Urea Nitrogen 7 mg/dL (9-16); Calcium 9.3 mg/dL (8.4-10.2); Carbon Dioxide 20 mmol/L (22-29); Chloride 109 mmol/L (96-108); Creatinine Clr Calc Pharmacy 162.6; Estimated Glomerular Filt Rate > 60; Glucose Random 109 mg/dL (60-115); Potassium 4.3 mmol/L (3.3-5.1); Sodium 139 mmol/L (135-145)
[2022-11-19] MEDS: ceFAZolin Sodium/Dextrose,Iso 2 GM/50 ML PIGGYBACK IV (13:37)
[2022-11-19] MEDS: Famotidine/PF 20 MG/2 ML VIAL IVPUSH ×2 (13:37→19:21)
[2022-11-19] MEDS: Lactated Ringers 1,000 ML 100 ML IVCONT (13:42)
[2022-11-19] MEDS: Acetaminophen 1,000 MG/100 ML PIGGYBACK 400 MG IV ×2 (15:52→23:53)
[2022-11-19] MEDS: 0.9 % Sodium Chloride Flush 3 ML SYRINGE IVFLUSH (19:21)
[2022-11-20] MEDS: HYDROmorphone HCl 0.5 MG/0.5 ML SYRINGE 0.25 MG IVPUSH ×2 (00:38→08:16)
[2022-11-20] MEDS: Lactated Ringers 1,000 ML 100 ML IVCONT (02:17)
[2022-11-20 03:25] VITALS: BP 123/61; PULSE 71; RESP 14; TEMP 36.2; O2SAT 100
[2022-11-20] MEDS: Acetaminophen 1,000 MG/100 ML PIGGYBACK 400 MG IV (06:15)
[2022-11-20] MEDS: Famotidine/PF 20 MG/2 ML VIAL IVPUSH (07:11)
[2022-11-20 07:20] VITALS: BP 133/71; PULSE 77; RESP 16; TEMP 36.4; O2SAT 100
[2022-11-20 07:24] LABS: Basophils Percent Auto 0.3 % (0-2); Eosinophils Percent Auto 0.1 % (0-4); Hematocrit 37.6 % (37.0-47.0); Hemoglobin 12.1 g/dl (12.0-16.0); Imm Gran Abs Auto 0.07 X10*3/uL (0.00-0.03); Imm Gran Pct Auto 0.5 % (0.0-0.4); Lymphocytes Absolute Auto 1.8 X10*3/uL (1.2-4.9); Lymphocytes Percent Auto 11.6 % (20-40); MANUAL DIFF FLAG SCAN; Mean Corpuscular HGB Conc 32.2 g/dl (31.0-35.0); Mean Corpuscular Hemoglobin 26.1 pg (27.0-33.0); Mean Corpuscular Volume 81.2 fL (80.0-98.0); Monocytes Percent Auto 6.7 % (2-11); Neutrophils Absolute Auto 12.4 x10*3/uL (2.0-8.3); Neutrophils Percent Auto 80.8 % (45-73); PLT CLUMP 1; Red Blood Count 4.63 X10*6/uL (4.20-5.50); Red Cell Distribution Width 13.9 % (11.0-16.0); SCAN SMEAR FLAG 1
[2022-11-20 07:37] LABS: Anion Gap 12 (12-20); Blood Urea Nitrogen 6 mg/dL (9-16); Calcium 9.4 mg/dL (8.4-10.2); Carbon Dioxide 19 mmol/L (22-29); Chloride 107 mmol/L (96-108); Creatinine Clr Calc Pharmacy 191.1; Estimated Glomerular Filt Rate > 60; Glucose Random 108 mg/dL (60-115); Sodium 134 mmol/L (135-145)
[2022-11-20 08:03] LABS: White Blood Count 15.3 X10*3/uL (4.8-10.8)
[2022-11-20 08:04] LABS: Platelet Count 184 X10*3/uL (160-400); SLIDE REVIEW VERIFIED
--- NOTE | 2022-11-20 08:55 | MHC.CM.PN ---
PATIENT IS FULLY INDEPENDENT WITH ADLS. TRANSPORT ARRANGED PRIOR TO PROCEDURE. PLAN IS DISCHARGE TODAY WITH NO NEED FOR SERVICES. RN AWARE.
--- NOTE | 2022-11-20 14:19 | HO.POSTANES ---
Post Anesthesia Evaluation Post Anesthesia Evaluation Date of Service: 11/20/22 Vital Signs: Vital Signs Temp Pulse Resp BP Pulse Ox O2 Del Method 11/20/22 07:20 97.6 F 77 16 133/71 100 Room Air 11/20/22 06:46 Room Air 11/20/22 03:25 97.2 F 71 14 123/61 100 Room Air Anesthesia: General Endotracheal-GETA Mental Status: Awake Pain Control: Satisfactory Nausea/Vomiting: None Hydration: Adequate Anesthesia-Related Issues: No Anes. Related Issues
== END 2022-11-20 10:19 | disposition home or self-care (01) | DRG 403 ==
LOC: HO.SSSA 09:53 → HO.S3 12:41
PROVIDERS: Nurse Practitioner; Physician Assistant; Admitting Provider Surgery; PCP Family Medicine; Visit Provider Surgery
PROC: 0DB64Z3 Excision of Stomach, Percutaneous Endoscopic Approach, Vertical (ICD-10-PCS; CPT 43845; principal; 2022-11-19 07:30)
DX: E66.01 Morbid (severe) obesity due to excess calories (principal); F32.A Depression, unspecified; K21.9 Gastro-esophageal reflux disease without esophagitis; Z68.41 Body mass index [BMI] 40.0-44.9, adult; J45.909 Unspecified asthma, uncomplicated; M19.90 Unspecified osteoarthritis, unspecified site; F41.9 Anxiety disorder, unspecified; Z79.899 Other long term (current) drug therapy
CPT/HCPCS: 36415; 80048; 81025; 85014; 85018; 85025; 86850; 86900; 86901; 88304; 88305; 88307; 88342; A4649; C9088; C9145; J0131; J0690; J1100; J1170; J2250; J2405; J2795; J3010

== ENCOUNTER → 2022-11-19 06:10 | Outpatient (BNV) | payer MEDICAID, SELFPAY | PROVIDERS: Admitting Provider Surgery; PCP Family Medicine; Visit Provider Surgery | DX: E66.01 Morbid (severe) obesity due to excess calories (principal); Z68.41 Body mass index [BMI] 40.0-44.9, adult | CPT/HCPCS: 43659; 43775 ==

== ENCOUNTER 2022-11-26 14:27 | Outpatient (AMB) | payer MEDICAID, SELFPAY ==
--- NOTE | 2022-11-26 14:50 | A.OFFVIS_ITS ---
Intake VS Expanded 11/26/22 14:57 Height 5 ft 5 in Weight 241 lb BMI 40.1 BP 129/82 Blood Pressure Location Rt brachial Blood Pressure Position Sitting Pulse 81 Pulse Source Pulse Oximeter Temp 97.0 F Temperature Source Tympanic Body Fat 109.2 Body Fat Percentage 45.3 Free Fat Mass 131.8 Muscle Mass 125.2 Visceral Mass 10.0 Water Mass 95.0 BMR 1,906 Intake Visit Reasons: (OV) 7 Days PO LSG 11/19/22 Customer Resource Specialist Required: No Allergies No Known Allergies [No Known Allergies*] Allergy (Verified 11/26/22 15:00) NICKEL Allergy (Unknown, Uncoded 11/26/22 15:00) redness and itching Medication List - Last Reconciled 11/26/22 by NATANAEL Villafuerte acetaminophen 500 mg (15.625 mL) PO Q4H albuterol sulfate 90 mcg/actuation (ProAir HFA) 2 puffs inhalation Q4-6H PRN albuterol sulfate 2.5 mg inhalation Q6H PRN pantoprazole 40 mg PO DAILY sucralfate 10 mL PO BID HPI HPI Comments History of Present Illness Details 26 yo female POD 7 s/p LSG Reports intolerance to celebrate and is now following Isopure 1/2 scoop in 8 oz water x 3 she states she is drinking 80 oz of fluids daily Pos bm Min pain at incision site PFSH Medical History Anxiety Asthma DJD (degenerative joint disease) GERD (gastroesophageal reflux disease) Morbid obesity Surgical History (Updated 11/26/22 @ 15:04 by Fani De Paz CMA) History of tonsillectomy Hx of laparoscopic partial gastrectomy Social History Household Members: Family Housing: House Are you a primary home care coordinator to a significant other at home: No Do you presently have visiting nurse or other home services: No Alcohol intake: current Alcohol intake frequency: holidays/special occasions only Alcohol type: wine Patient Tobacco Use Status: Never used Tobacco service: No Current occupational status: employed 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 Original weight on 06/28/22 was 272.8 pounds and op weight was 249.8 pounds. Be sure to text Dr Awad exactly 1 week after surgery your weight from your home scale so he can adjust your meal plan. Continue meal plan until f/u w Olvera in 2 weeks, states she will be picking up celebrate mvi today. Should not be having more than 80 oz total fluid per day May shower, no submersion in bath for another week Continue abdominal binder with activity and exercise for the next 2 weeks. Exercise prior to surgery was Treadmill, may resume No abdominal exercises for 6 weeks post operatively Will be emailed link to post op video for review Reminded of the pace of drinking, 2 mL per minute, 1 oz/15 min. Coding Level of Care Code Global (82857) Diagnoses Morbid obesity E66.01
[2022-11-26 14:57] VITALS: BP 129/82; PULSE 81; TEMP 36.1; BMI 40.1
== END 2022-11-26 15:19 | disposition home or self-care (01) ==
PROVIDERS: PCP Family Medicine; Visit Provider Physician Assistant Surgical
DX: E66.01 Morbid (severe) obesity due to excess calories (principal); Z68.41 Body mass index [BMI] 40.0-44.9, adult; Z90.3 Acquired absence of stomach [part of]; Z98.84 Bariatric surgery status
CPT/HCPCS: 99024

== ENCOUNTER → 2022-11-26 14:27 | Outpatient (BNVA) | payer MEDICAID, SELFPAY | PROVIDERS: PCP Family Medicine; Visit Provider Physician Assistant Surgical ==

== ENCOUNTER → 2022-12-02 14:00 | Outpatient (BNVA) | payer MEDICAID, SELFPAY | PROVIDERS: PCP Family Medicine; Visit Provider Dietitian, Registered | DX: E66.9 Obesity, unspecified (principal); Z98.84 Bariatric surgery status | CPT/HCPCS: 97803 ==

== ENCOUNTER 2022-12-17 11:00 | Outpatient (AMB) | payer MEDICAID, SELFPAY ==
--- NOTE | 2022-12-17 11:00 | MHC.OFFVISWM ---
Intake Intake Visit Reasons: VIDEO PO LSG 11/19/22 Allergies No Known Allergies [No Known Allergies*] Allergy (Verified 11/26/22 15:00) NICKEL Allergy (Unknown, Uncoded 11/26/22 15:00) redness and itching Medication List - Last Reconciled 12/17/22 by Norma Dhillon PA-C albuterol sulfate 90 mcg/actuation (ProAir HFA) 2 puffs inhalation Q4-6H PRN albuterol sulfate 2.5 mg inhalation Q6H PRN pantoprazole 40 mg PO DAILY sucralfate 10 mL PO BID HPI HPI Comments History of Present Illness Details Post op LSG Dr Lewis on 11/19/22 now 4 weeks post op, patient had positive test at 2 weeks post op and was given nutrition plan by Gia. No emesis, has nausea in am when wakes up and it resolves sometimes with food or liquid. May have cold water or Propel 0. 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 Works form 10am to 6pm - doesn't get home until 8 pm. Has not been taking PPI or sucralfate for 2 weeks, stopped bariatirc vitamin due to nausea - was opening capsule and putting in shake. She was told 5 days ago to purchase One -a day PN vitamins = but has not bought them yet. Meal plan- 9am - Garden of Life - 1 scoop with 8 oz 2% regular milk - over 2 hours 2 pm - same shake - over 2 hours 5 pm - same shake 7:30 pm - same shake Propel 0 during the day - not sure of total fluids. Exercise - walking at home. Before surgery went to gym on treadmill. [facility] Medical History (Updated 12/03/22 @ 12:33 by Norma Dhillon PA-C) Anxiety DJD (degenerative joint disease) GERD (gastroesophageal reflux disease) Asthma Morbid obesity Surgical History (Updated 11/26/22 @ 15:04 by Fani De Paz CMA) Hx of laparoscopic partial gastrectomy History of tonsillectomy Social History Household Members: Family Housing: House Are you a primary long term care administrator to a significant other at home: No Do you presently have visiting nurse or other home services: No Alcohol intake: current Alcohol intake frequency: holidays/special occasions only Alcohol type: wine Patient Tobacco Use Status: Never used Tobacco service: No Current occupational status: employed 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 Needs to restart PN vitamins, Pantoprazole and carafate today. PN ULS is Jan 02 with OB appt. Meal plan to get 137 grams of protein per day 9am - Garden of life shake and 8 oz 1% fairlife 12 pm- bar- 1 hour 2 pm -same shake 5pm - 1 oz scrambled egg or 2 oz yogurt 7:30 pm - same shake Exercise - LS 2 miles 4d/ week. CR on 01/03, then me 2 weeks later. Will text me tomorrow with her weight, and whether she started PNV pantoprazole and sucralfate. (2) : Code(s): Z34.90 - Encounter for supervision of normal , unspecified, unspecified trimester Telehealth Telehealth Location of provider rendering services: practice address Location of patient: address on file Patient Identification confirmed using: Name, : Yes Telehealth method: video Patient verbally consented to treatment: Yes Patient verbally consented to billing insurance company: Yes Patient informed of any privacy concerns related to visit: Yes Coding Level of Care Code Global (02574) Diagnoses S/P laparoscopic sleeve gastrectomy Z98.84 Z34.90
== END 2022-12-17 11:30 | disposition home or self-care (01) ==
LOC: HO.HBS 11:27
PROVIDERS: PCP Family Medicine; Visit Provider Physician Assistant
DX: Z98.84 Bariatric surgery status (principal); Z33.1 Pregnant state, incidental
CPT/HCPCS: 99024

== ENCOUNTER → 2022-12-17 11:00 | Outpatient (BNVA) | payer MEDICAID, SELFPAY | PROVIDERS: PCP Family Medicine; Visit Provider Physician Assistant ==

== ENCOUNTER 2023-05-03 08:31 | Emergency (ER) | payer MEDICAID, SELFPAY ==
[2023-05-03 08:34] VITALS: BP 121/67; PULSE 84; RESP 20; TEMP 36.6; O2SAT 99; BMI 37.7
--- NOTE | 2023-05-03 08:47 | ED_ITS ---
HPI - Nausea/Vomiting/Diarrhea General Chief complaint: Abdominal Pain Stated complaint: Food poisoning, 6months preg Time Seen by Provider: 05/03/23 08:37 Source: patient and family Mode of arrival: ambulatory Limitations: no limitations History of Present Illness HPI Narrative: 27 yo female G1 6 months D = US followed at [facility], hx of lap gastric sleeve. No issues with , no leakage of fluids, vaginal bleeding. Ate tristanian food with family and a couple of hours later started with abrupt onset n/v/d and some lower abdominal discomfort but not significant. No travel, no sick contacts, no fevers, no blood in stool. MD elicited complaint: nausea, vomiting and diarrhea Pertinent past history: abdominal surgery Onset (ago): hour(s) (several) Description of vomiting: food contents and watery Description of diarrhea: watery Associated nausea: Yes Associated abdominal pain: Yes Location of pain: periumbilical Pain consistency: intermittent Severity: mild Quality: aching Exacerbating factors: eating Relieving factors: none Context: possible food poisoning Associated symptoms: denies other symptoms Related Data Home Medications Medication Instructions Recorded Confirmed albuterol sulfate 5 mg/mL(0.5 %) 2.5 mg inhalation Q6H PRN 06/12/22 12/17/22 solution for nebulization Shortness Of Breath Or Wheezing albuterol sulfate 90 mcg/actuation 2 puff inhalation Q4-6H PRN 11/12/22 12/17/22 aerosol inhaler (ProAir HFA) Shortness Of Breath Or Wheezing Previous Rx's Medication Instructions Recorded pantoprazole 40 mg tablet,delayed 40 mg PO DAILY #30 tabs 11/08/22 release sucralfate 100 mg/mL oral 10 ml PO BID #400 mL 11/08/22 suspension nitrofurantoin 100 mg PO Q12H 3 days #6 caps 05/03/23 monohydrate/macrocrystals 100 mg capsule (Macrobid) ondansetron 4 mg disintegrating 4 mg PO Q8H PRN nausea and 05/03/23 tablet vomiting #10 tabs Allergies Allergy/AdvReac Type Severity Reaction Status Date / Time No Known Allergies Allergy Verified 11/26/22 15:00 [No Known Allergies*] NICKEL Allergy Unknown redness Uncoded 05/03/23 08:36 and itching Review of Systems 2 Review of Systems: Constitutional : No Weight loss, No Fever, No Chills ENT/Mouth : No sore throat, No Rhinorrhea Eyes: No Swelling, No Redness Cardiovascular : No Chest Pain, No SOB, NoEdema Respiratory : No Cough, No Sputum, No Wheezing Gastrointestinal : Positive Nausea, Positive Vomiting, positive Diarrhea, positive abdominal Pain, No Hematochezia, No Melena Genitourinary : No Dysuria, No Urinary Frequency, No Hematuria, No Urgency Musculoskeletal : No joint pain, No Myalgias, No Joint Swelling Skin : No Skin Lesions, No rash Neuro : No Weakness, No Numbness, No Dizziness, No Headache Psych : No Anxiety/Panic, No Depression Heme/Lymph: No Bruising, No Lymphadenopathy Endocrine : No Polyuria, No Polydipsia All other systems reviewed and are negative. Gastrointestinal: Gastrointestinal: Reports nausea PMFSH Past Medical History Attestation statement: The following information was validated with the patient. Source: old records reviewed Medical History Anxiety DJD (degenerative joint disease) GERD (gastroesophageal reflux disease) Asthma Morbid obesity Surgical History Hx of laparoscopic partial gastrectomy History of tonsillectomy Social History Social History Household Members: Family Housing: House Are you a primary caregiver assisted living to a significant other at home: No Do you presently have visiting nurse or other home services: No Alcohol intake: former Patient Tobacco Use Status: Never used Tobacco Smoked in Last 30 Days: No Use of substances other than those prescribed or required for medical reasons: No Advance Directives: No Advance Directives Information Provided: No Patient : Yes service: No Current occupational status: employed 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 Oriented X3. No acute distress. Eyes: Pupils equal, round and reactive to light. ENT: Pharynx mildly dry MM Neck: Normal inspection. Neck supple. CVS: Normal heart rate and rhythm. Pulses normal. Respiratory: No respiratory distress. Breath sounds normal. Abdomen: Soft and nontender. Gravid uterus belly button Skin: Skin warm and dry. Normal skin color. Normal skin turgor. Extremities: No lower extremity edema. No calf ttp Neuro: Oriented X 3. No motor deficit. No sensory deficit. Course Course Course Narrative: FHT 151 Reevaluation(s) Reevaluation #1: feels much better tolerating PO stable for DC Reevaluation #2: has asymptomatic bacturia will dose with macrobid for 3 days Medications Administered Generic Name Dose Route Start Last Admin Trade Name Freq PRN Reason Stop Dose Admin Sodium Chloride 1,000 mls @ 999 mls/hr 05/03/23 11:30 05/03/23 11:29 Ns IV 05/03/23 12:30 999 mls/hr .Q1H1M IZABELLA Administration Discontinued Medications Generic Name Dose Route Start Last Admin Trade Name Freq PRN Reason Stop Dose Admin Diphenhydramine HCl 25 mg 05/03/23 08:38 05/03/23 09:03 Diphenhydramine Hcl 50 Mg/Ml Vial IVPUSH 05/03/23 08:39 25 mg ONCE ONE Administration Sodium Chloride 1,000 mls @ 999 mls/hr 05/03/23 08:45 05/03/23 11:28 Ns IVCONT 05/03/23 10:45 Infused .Q1H1M IZABELLA Infusion Metoclopramide HCl 10 mg 05/03/23 08:38 05/03/23 09:03 Metoclopramide Hcl 10 Mg/2 Ml Vial IVPUSH 05/03/23 08:39 10 mg ONCE ONE Administration Medical Decision Making Medical Decision Making MDM Narrative: 27 yo female with PMH of lap gastric sleeve, G1 6 months D = US here with c/o n/v/d and some mild cramps but no leakage of fluid or vaginal bleeding that started abruptly together after eating [place] Food. Her abdominal exam is benign she had normal day yesterday. She has no OBGYN complaints. I suspect food toxicity, hx and clinical exam not consistent with SBO or internal hernia. Not having intermittent cramping pain to suggest labor. IVF, labs, anti-emetics, FHT, she reports + FM. Differential Diagnosis Differential Diagnoses: The differential diagnosis associated with the presentation includes viral syndrome, food toxicity, UTI Admission/Observation Consideration of admission/observation: Escalation of care including admission/observation considered Lab Data MDM Lab Attestation statement: I reviewed the patient's lab results. 05/03/23 09:03 05/03/23 09:03 Labs: Lab Results 05/03/23 05/03/23 Range/Units 09:03 11:08 WBC 10.7 (4.8-10.8) X10*3/uL RBC 3.97 L (4.20-5.50) X10*6/uL Hgb 11.0 L (12.0-16.0) g/dl Hct 33.5 L (37.0-47.0) % MCV 84.4 (80.0-98.0) fL MCH 27.7 (27.0-33.0) pg MCHC 32.8 (31.0-35.0) g/dl RDW 14.1 (11.0-16.0) % Plt Count 203 (160-400) X10*3/uL MPV 9.9 (9.4-12.3) fL Immature Gran % (Auto) 0.3 (0.0-0.4) % Neut % (Auto) 87.9 H (45-73) % Lymph % (Auto) 6.8 L (20-40) % [place] % (Auto) 4.6 (2-11) % Eos % (Auto) 0.2 (0-4) % Baso % (Auto) 0.2 (0-2) % Lymph # (Auto) 0.7 L (1.2-4.9) X10*3/uL [place] # (Auto) 0.5 (0.1-1.2) X10*3/uL Eos # (Auto) 0.0 (0.0-0.4) X10*3/uL Baso # (Auto) 0.0 (0.0-0.2) X10*3/uL Abs Immat Gran (auto) 0.03 (0.00-0.03) X10*3/uL Absolute Neuts (auto) 9.4 H (2.0-8.3) x10*3/uL Absolute Nucleated RBC 0.000 (0.0-0.012) X10*3/uL Nucleated RBC % (auto) 0.0 (0.0-0.2) /100WBC Sodium 135 (135-145) mmol/L Potassium 4.0 (3.3-5.1) mmol/L Chloride 107 (96-108) mmol/L Carbon Dioxide 21 L (22-29) mmol/L Anion Gap 11 L (12-20) BUN 8 L (9-16) mg/dL Creatinine 0.61 (0.5-1.4) mg/dL Estim Creat Clear Calc 161.7 Estimated GFR > 60 Random Glucose 80 (60-115) mg/dL Calcium 8.7 D (8.4-10.2) mg/dL Magnesium 1.7 (1.6-2.6) mg/dL Total Bilirubin 0.4 (0.0-1.0) mg/dL Direct Bilirubin 0.2 (0.0-0.5) mg/dL AST 18 (5-31) U/L ALT 14 (0-31) U/L Alkaline Phosphatase 75 (39-117) U/L Total Protein 6.0 L (6.5-8.0) g/dL Albumin 3.2 L (3.5-5.0) g/dL Lipase 12 (8-78) U/L Urine Color Dark Yellow Urine Appearance Cloudy Urine pH 5.5 (5.0-9.0) Ur Specific [place] >= 1.030 H (1.005-1.025) Urine Protein 30 (1+) H (Neg-Trace) mg/dL Urine Glucose (UA) Negative (Negative) mg/dL Urine Ketones 80 (Negative) mg/dL Urine Blood Negative (Negative) Urine Nitrite Negative (Negative) Ur Leukocyte Esterase Trace H (Negative) Urine RBC 0-2 (0-2) /HPF Urine WBC 0-5 (0-5) /HPF Ur Squamous Epith Cells 11-20 (0-2) /HPF Urine Bacteria 4+ (None Seen) Hyaline Casts 3-5 (0-2) /LPF COVID-19 (BRENDA) Negative (Negative) COVID-19 Clin Com See Note Independent Historian Clinical information obtained from an independent historian. History obtained from or confirmed by: Spouse External Record Review External record reviewed: Inpatient record Discharge Plan Discharge Clinical Impression: Toxic effect of food contaminant, Nausea, Asymptomatic bacteriuria Vomiting Qualifiers: Vomiting type: unspecified Nausea presence: with nausea Qualified Code(s): R 11.2 - Nausea with vomiting, unspecified Patient Disposition: Home, Self-Care Instructions: Dehydration (ED), Acute Nausea and Vomiting (ED), Acute Diarrhea (ED) Additional Instructions: bland diet for the next 24 hours. drink plenty of fluids, return for worsening pain, leakage of fluids, vaginal bleeding, inability to eat or drink or any other concerns. your blood pressure was normal but you did have protein in your urine this could be due to dehydration but given please notify your OBGYN on Friday and follow up with recheck urine next week. bacteria in urine given will place on 3 days of macrobid Prescriptions: New ondansetron 4 mg tablet,disintegrating 4 mg PO Q8H PRN (Reason: nausea and vomiting) Qty: 10 0RF nitrofurantoin monohyd/m-cryst [Macrobid] 100 mg capsule 100 mg PO Q12H 3 Days Qty: 6 0RF Rx Instructions: must administer with a meal/food No Action albuterol sulfate [ProAir HFA] 90 mcg/actuation Hfa Aerosol Inhaler 2 puff INHALATION Q4-6H PRN (Reason: Shortness Of Breath Or Wheezing) Patient Comments: has not needed recently albuterol sulfate 5 mg/mL solution for nebulization 2.5 mg inhalation Q6H PRN (Reason: Shortness Of Breath Or Wheezing) Patient Comments: Has not needed recently pantoprazole 40 mg tablet,delayed release (DR/EC) 40 mg PO DAILY Qty: 30 2RF sucralfate 100 mg/mL suspension 10 ml PO BID Qty: 400 2RF
[2023-05-03] MEDS: 0.9 % Sodium Chloride 1,000 ML 999 ML IVCONT ×2 (08:58→10:17)
[2023-05-03] MEDS: diphenhydrAMINE HCL 50 MG/ML VIAL 25 MG IVPUSH (09:03)
[2023-05-03] MEDS: Metoclopramide HCl 10 MG/2 ML VIAL IVPUSH (09:03)
[2023-05-03 09:07] LABS: MANUAL DIFF FLAG NO
[2023-05-03 09:08] LABS: Basophils Percent Auto 0.2 % (0-2); Eosinophils Percent Auto 0.2 % (0-4); Hematocrit 33.5 % (37.0-47.0); Imm Gran Abs Auto 0.03 X10*3/uL (0.00-0.03); Imm Gran Pct Auto 0.3 % (0.0-0.4); Lymphocytes Absolute Auto 0.7 X10*3/uL (1.2-4.9); Lymphocytes Percent Auto 6.8 % (20-40); Mean Corpuscular HGB Conc 32.8 g/dl (31.0-35.0); Mean Corpuscular Hemoglobin 27.7 pg (27.0-33.0); Mean Corpuscular Volume 84.4 fL (80.0-98.0); Mean Platelet Volume 9.9 fL (9.4-12.3); Monocytes Absolute Auto 0.5 X10*3/uL (0.1-1.2); Monocytes Percent Auto 4.6 % (2-11); Neutrophils Absolute Auto 9.4 x10*3/uL (2.0-8.3); Neutrophils Percent Auto 87.9 % (45-73); Platelet Count 203 X10*3/uL (160-400); Red Blood Count 3.97 X10*6/uL (4.20-5.50); Red Cell Distribution Width 14.1 % (11.0-16.0); White Blood Count 10.7 X10*3/uL (4.8-10.8)
[2023-05-03 09:22] LABS: Alanine Aminotransferase 14 U/L (0-31); Albumin Level 3.2 g/dL (3.5-5.0); Alkaline Phosphatase 75 U/L (39-117); Anion Gap 11 (12-20); Aspartate Amino Transferase 18 U/L (5-31); Bilirubin Direct 0.2 mg/dL (0.0-0.5); Bilirubin Total 0.4 mg/dL (0.0-1.0); Blood Urea Nitrogen 8 mg/dL (9-16); Calcium 8.7 mg/dL (8.4-10.2); Carbon Dioxide 21 mmol/L (22-29); Chloride 107 mmol/L (96-108); Creatinine Clr Calc Pharmacy 161.7; Estimated Glomerular Filt Rate > 60; Glucose Random 80 mg/dL (60-115); Lipase 12 U/L (8-78); Magnesium 1.7 mg/dL (1.6-2.6); Sodium 135 mmol/L (135-145)
[2023-05-03 09:50] LABS: COVID-19 Test Negative (Negative); IDNOW Serial# 152EDE1D
[2023-05-03 11:07] VITALS: BP 100/46; PULSE 70; RESP 18; O2SAT 100
[2023-05-03 11:18] LABS: Appearance Urine Cloudy; Color Urine Dark Yellow; Glucose Urine UA Negative (Negative); Leukocyte Esterase Urine Trace (Negative); Nitrite Urine Negative (Negative); PH 5.5 (5.0-9.0); Specific Gravity - Urine >= 1.030 (1.005-1.025); UMIC TRIGGER UACC YES; Urine Blood Negative (Negative); Urine Ketones 80 mg/dL (Negative); Urine Protein 30 (1+) mg/dL (Neg-Trace)
[2023-05-03 11:24] LABS: Bacteria Urine 4+ (None Seen); RBC Urine 0-2 /HPF (0-2); WBC Urine 0-5 /HPF (0-5)
[2023-05-03] MEDS: 0.9 % Sodium Chloride 1,000 ML 999 ML IV (11:29)
--- NOTE | 2023-05-03 11:31 | PC.NURSE ---
reports feeling better, fluids infusing per mar
== END 2023-05-03 12:44 | disposition home or self-care (01) ==
PROVIDERS: Emergency Provider Emergency Medicine; PCP Family Medicine
DX: O9A.212 Injury, poisoning and certain other consequences of external causes complicating pregnancy, second trimester (principal); A05.8 Other specified bacterial foodborne intoxications; O26.892 Other specified pregnancy related conditions, second trimester; R82.71 Bacteriuria; R11.2 Nausea with vomiting, unspecified; Z11.52 Encounter for screening for COVID-19
CPT/HCPCS: 80048; 80076; 81001; 83690; 83735; 85025; 87635; 96361; 96374; 96375; 99284; J1200; J2765